=== PATIENT | male | born 1985 | race Caucasian/White ===

== ENCOUNTER 2016-08-14 09:27 | Emergency (ER) | payer OTHER ==
[~2016-08-14] VITALS: Ht 175.3 cm; Wt 70.3 kg
[~2016-08-14 09:27] MED LIST: AUGMENTIN 875-1 EACH PO; BACTRIM DS TAB1 EACH; HYDROCODONE-AP1 EAC6; MAALOX ADVANCE770 ML PO; NAPROSYN500 MG PO; NEXIUM40 MG PO; NORCO 5-325 TA1 EACH PO; SERTRALINE HCL100 MG PO; TRIUMEQ TABLET1 EACH PO; [UNRECOGNIZED DRUG - OTHER]; [UNRECOGNIZED DRUG - OTHER]; [UNRECOGNIZED DRUG - OTHER]
[2016-08-14] MEDS ORDERED: PENICILLIN VK500 M1 PO (09:39)
[2016-08-14 09:55] VITALS: BP 116/86
== END 2016-08-14 09:56 | disposition home or self-care (01) ==
LOC: ER 09:27
DX: K02.9 Dental caries, unspecified (principal); Z21 Asymptomatic human immunodeficiency virus [HIV] infection status; F17.210 Nicotine dependence, cigarettes, uncomplicated; F10.99 Alcohol use, unspecified with unspecified alcohol-induced disorder; F15.10 Other stimulant abuse, uncomplicated

== ENCOUNTER 2016-09-05 10:18 | Emergency (ER) | payer OTHER ==
[~2016-09-05] VITALS: Ht 175.3 cm; Wt 73.9 kg
[~2016-09-05 10:18] MED LIST changes: +PENICILLIN VK500 M1 PO
[2016-09-05] MEDS ORDERED: DOXYCYCLINE 10100 MG PO (11:21)
[2016-09-05 11:29] VITALS: BP 108/70
== END 2016-09-05 11:29 | disposition home or self-care (01) ==
LOC: ER 10:18
DX: J02.8 Acute pharyngitis due to other specified organisms (principal); R06.02 Shortness of breath; S20.161A Insect bite (nonvenomous) of breast, right breast, initial encounter; F17.210 Nicotine dependence, cigarettes, uncomplicated; F15.10 Other stimulant abuse, uncomplicated; Z21 Asymptomatic human immunodeficiency virus [HIV] infection status; W57.XXXA Bitten or stung by nonvenomous insect and other nonvenomous arthropods, initial encounter; Y93.89 Activity, other specified; Y92.89 Other specified places as the place of occurrence of the external cause; Y99.8 Other external cause status